=== PATIENT | female | born 1950 | race Caucasian/White ===

== ENCOUNTER 2023-12-19 15:33 | Emergency (ER) | payer MEDICAID, SELFPAY ==
[2023-12-19] VITALS (7 sets, daily range): BP systolic 199–221; BP diastolic 51–71; BMI 32.8
--- NOTE | 2023-12-19 16:05 | ED.GENMED ---
History of Present Illness
General
Chief Complaint: Fall
Source: patient and other (Friend)
Time Seen by Provider: 12/19/23 15:45
Travel History
Have you had any contact with someone who has COVID-19?: No
Do you have any symptoms of coronavirus? Fever > 100 degrees, chills, cough, shortness of breath, sore throat, loss of taste or smell, muscle aches, or headache?: No
History of Present Illness
History of Present Illness:
This patient is a 73-year-old female presents emergency department after having a mechanical fall yesterday while trying [employer] umbrella on a table, losing her balance, and falling onto the floor, hitting her head on the left side. There was no
loss of consciousness. She was able to get up on her own. However, since that time, she describes very mild discomfort in the left side of her leg as well as 'muscular' discomfort in the left inner thigh which is mild in intensity. Patient denies
loss of consciousness, neck pain, chest pain, dyspnea, palpitations, abdominal pain, numbness, tingling, focal weakness, change in vision, change in speech, or other complaints. Patient has somewhat chronic episodes of intermittent dizziness,
difficult to describe but definitely not a sense of spinning or vertigo. She describes not feeling dizzy at this time and did not feel dizzy before the mechanical fall. Of note, patient takes Plavix daily, otherwise denies
anticoagulation/antiplatelet agents.
Past History
Past History
ED Past Medical History: CAD, HTN, Hypercholesterolemia, NIDDM and Hypothyroidism
ED Past Surgical History: Cardiac and Cholecystectomy
Social History
Tobacco: Non-smoker
Alcohol: None
Drug: None
Living: alone
Phy Exam
Physical Exam
Physical Exam:
GENERAL: Alert , in no apparent distress
EYE: pupils equal and reactive, no photophobia, eomi
NECK: Supple, no significant adenopathy, no midline ttp.
ENT: o/p clr, mmm, no fry, no raccoon, no rhinorrhea, no signs head/facial inju but for small area sts L parietal area.
CARDIAC: Regular rate and rhythm .
LUNGS: Clear breath sounds bilaterally, no acute respiratory distress, no wheezes/rales/rhonchi
ABDOMEN: Soft, without focal tenderness, no r/g, no cvat
NEUROLOGICAL: Alert and oriented, no focal neuro deficits, motor 5/5, sens itnact, cn 2-12 intact, f to n nl
SKIN: Warm and dry, skin intact.
MUSCULOSKELETAL: No edema, well perfused. FROM easily no ttp. Pt describes mild 'muscular' pain L inner thigh, no physical exam findings and ROM preserved, no bruising/swelling, etc.
PSYCH: Normal and appropriate interaction.
Course
Orders/Labs/Results
Orders:
Orders
12/19/23 15:[address] Non Medication Order As Directed
Physician Order: bp please
12/19/23 15:46
CT Head W/o Iv Contrast Urgent
Comment:
Reason For Exam: fall on plavix
12/19/23 16:04
Electrocardiogram (*1) Urgent
Reason for Study: Vertigo / Dizzy
EKG- Treatment ONCE
12/19/23 16:14
Complete Blood Count/No Diff Urgent
Comprehensive Metabolic Panel Urgent
Abnormal Lab Results
12/19/23
16:14
RBC 3.61 L 10^6/uL
(4.20-5.40)
Hgb 11.0 L g/dL
(12.0-16.0)
Hct 32.2 L %
(37.0-47.0)
BUN 21 H mg/dl
(7-17)
Glucose 173 H mg/dl
(70-99)
12/19/23 16:14
12/19/23 16:14
Vital Signs
Initial and Last Documented VS:
Initial Vital Signs
Temp Pulse Resp Pulse Ox
98.4 F 74 20 96
12/19/23 15:35 12/19/23 15:35 12/19/23 15:35 12/19/23 15:35
Last Documented Vital Signs
Temp Pulse Resp BP Pulse Ox
98.4 F 74 20 220/70 99
12/19/23 15:35 12/19/23 16:03 12/19/23 16:03 12/19/23 16:07 12/19/23 16:03
*Critical Care Note
Total Time (30-74mins, 75-104mins- exclusive of procedures): Not Applicable
Update Note
Update Note:
Patient presents to the Emergency Department with ___fall
Number and Complexity of Problems Addressed at the Encounter
� Chronic conditions affecting care:
� Acute Exacerbation and/or Progression of Chronic Illness:
� Differential Diagnosis includes: but not limited to subdural, epidural, skull fx, concussion, etc. etc.
Amount and/or Complexity of Data to be Reviewed and Analyzed
� I performed an independent evaluation of and my interpretation is:
EKG: Read by me normal sinus rhythm, normal rate, normal axis, no acute ischemia
CT: NAD read by radiology
Xrays:
Laboratory Studies: Generally unremarkable, mild anemia noted
Other:
� Review of other/old records reveals:
� Clinical information was obtained by an independent historian:
� Prescriptions/Medications Considered but not given:
� Further testing considered but not performed:
Risk of Complications and/or Morbidity or Mortality of Patient Management
� Social determinants of health affecting care:
� Discussion with other providers (PCP, Hospitalists, Consultants, etc):
� Escalation of care including admission/observation vs risk of discharge considered: Note history and physical obtained in the company of american sign language interpreter via language line. Patient aware of importance of follow-up and reasons to
return to the ER. Elevated blood pressure noted here, patient insists 'when I go home it will be normal', and feels that it is situational. She is compliant with her medications. She does not have any symptoms at this time related to elevated
blood pressure to suggest hypertensive urgency/emergency. Discussed with patient importance of repeat testing, and reasons return to the ER.
ED Attending Note
-
Portions of this chart may have been created with voice recognition software.� Occasional wrong word or��sound alike� substitutions may have occurred due to the inherent limitations of voice recognition software.
Discharge Plan
Departure
Patient Disposition: Home (Routine Discharge)
Date of Disposition: 12/19/23
Time of Disposition: 17:52
Patient with high blood pressure during this ER visit?: Yes
Condition: Good
Discharge Problem:
Head injury
Instructions: Muscle strain, Head Injury in Adults (DC), BLOOD PRESSURE
Referrals:
NONE,* [Family Provider] -
Activity Restrictions/Additional Instructions:
IF YOU DEVELOP SEVERE HEADACHE, VOMITING, BLEEDING, NUMBNESS, WEAKNESS, CHANGE IN VISION, PERSISTENT OR NEW DIZZINESS, OR OTHER WORRISOME SIGNS, PLEASE RETURN TO THE ER IMMEDIATELY. YOUR BLOOD PRESSURE IS ELEVATED TODAY. THIS NEEDS TO BE MONITORED
CLOSELY. PLEASE HAVE IT RECHECKED WITHIN 24 HOURS, AND CONTINUE TO TAKE YOUR MEDICATION YOU NORMALLY DO.
Interventions
Interventions:
*Risk Screen - Suicide Last Done: 12/19/23 16:23
*General Assessment Last Done: 12/19/23 16:20
*Neglect/Abuse Screening Last Done: 12/19/23 16:20
*ED COVID-19 Vaccine History Last Done: 12/19/23 15:35
ED-Musculoskeletal Assessment Last Done: 12/19/23 16:20
ED- Neurological Assessment Last Done: 12/19/23 16:20
ED-Skin Assessment Last Done: 12/19/23 16:20
Discharge Date and Time
Print Language: BRAZILIAN
[2023-12-19 16:20] LABS: Hematocrit 32.2 % (37.0-47.0); Mean Corp Hgb Conc. 34.2 g/dL (33.0-37.0); Mean Corpuscular Hgb 30.5 pg (27.0-31.0); Mean Corpuscular Volume 89.2 fL (81.0-99.0); Mean Platelet Volume 9.1 fL (7.4-10.4); Platelet Count 232 10^3/uL (130-400); Red Blood Cell Count 3.61 10^6/uL (4.20-5.40); Red Cell Dist. Width 13.2 % (11.5-14.5); White Blood Cell Count 6.5 10^3/uL (4.8-10.8)
[2023-12-19 16:40] LABS: ALT (SGPT) 17 U/L (0-35); AST (SGOT) 30 U/L (14-36); Albumin 4.3 g/dl (3.5-5.0); Alkaline Phosphatase 92 U/L (38-126); Blood Urea Nitrogen 21 mg/dl (7-17); Calcium 9.7 mg/dl (8.4-10.2); Carbon Dioxide 22 mmol/L (22-30); Estimated Creatinine Clearance 61 ml/min; Glucose 173 mg/dl (70-99); Potassium 4.5 mmol/L (3.5-5.1); Sodium 135 mmol/L (135-145); Total Bilirubin 0.6 mg/dl (0.2-1.3); Total Protein 6.8 g/dl (6.3-8.2); eGFR > 60.00
[2023-12-19 16:45] LABS: Chloride 102 mmol/L (98-107)
== END 2023-12-19 18:30 | disposition home or self-care (01) ==
LOC: EMR 15:33
PROVIDERS: EMERGENCY PHYSICIAN Emergency Medicine
DX: S09.90XA Unspecified injury of head, initial encounter (principal); R42 Dizziness and giddiness; W18.39XA Other fall on same level, initial encounter; Y93.89 Activity, other specified; I25.10 Atherosclerotic heart disease of native coronary artery without angina pectoris; I10 Essential (primary) hypertension; E78.00 Pure hypercholesterolemia, unspecified; E11.9 Type 2 diabetes mellitus without complications; E03.9 Hypothyroidism, unspecified; Z79.02 Long term (current) use of antithrombotics/antiplatelets; Z90.49 Acquired absence of other specified parts of digestive tract; Z88.0 Allergy status to penicillin
CPT/HCPCS: 99284; 70450; 80053; 85027; 93005